=== PATIENT | female | born 1950 | race Caucasian/White ===

== ENCOUNTER → 2016-12-25 | Outpatient (CLI) | payer OTHER | END | disposition home or self-care (01) | LOC: LABWHC1 12:07 | PROVIDERS: ATTEND Internal Medicine Endocrinology, Diabetes & Metabolism | DX: E04.2 Nontoxic multinodular goiter (principal) | CPT/HCPCS: 36415; 84439; 84443; 84480 ==

== ENCOUNTER → 2017-02-22 | Outpatient (CLI) | payer OTHER ==
--- NOTE | 2017-02-23 09:49 | BD ---
EXAMINATION TYPE: MG DEXA axial skeleton. DATE OF EXAM: 02/22/2017 1:43 PM COMPARISON: NONE CLINICAL HISTORY: breast CA, post menopausal Height: 5'2 Weight: 133 FRAX RISK QUESTIONS: Alcohol (3 or more units per day): no Family History (Parent hip fracture): no Glucocorticoids (More than 3mos): no (Ex: prednisone, prednisolone, methylprednisolone, dexamethasone, and hydrocortisone). History of Fracture in Adulthood: no Secondary Osteoporosis: 1. Type 1 Diabetes: no 2. Hyperthyroidism: yes 3. Menopause before 45: no 4. Malnutrition: no 5. Chronic liver disease: no Rheumatoid Arthritis: no Current Tobacco Use: no RISK FACTORS HISTORY OF: Surgery to Spine: lower back When: 1999 Postmenopausal woman: Hyperthyroidism: <1 year MEDICATIONS: Thyroid Medications: Which medication: unknown How Lon months Additional Medications: tamoxifen, Additional History: breast cancer 2 months ago EXAM MEASUREMENTS: Bone mineral densitometry was performed using the [employer] System. Bone mineral density about the R hip (g/cm2): 0.841 Bone mineral density about the L hip (g/cm2): 0.824 T Score values are as follows: -----R Neck: -1.4 -----L Neck: -1.5 -----R Intertrochanter: -1.7 -----L Intertrochanter: -1.7 IMPRESSION: Osteopenia (T Score between -2.5 and -1 as noted by T score values. There is slightly increased risk of fracture and the patient may be considered for treatment. Re-Screen 1-2 years. NOTE: T-SCORE=SD OF THE YOUNG ADULT MEAN.
== END | disposition home or self-care (01) ==
LOC: RADBDWWP 13:21
PROVIDERS: ATTEND Internal Medicine Hematology & Oncology
DX: M85.88 Other specified disorders of bone density and structure, other site (principal); C50.412 Malignant neoplasm of upper-outer quadrant of left female breast; Z79.890 Hormone replacement therapy
CPT/HCPCS: 77080

== ENCOUNTER → 2017-05-28 | Outpatient (CLI) | payer MEDICARE | END | disposition home or self-care (01) | LOC: LABWHC1 13:44 | PROVIDERS: ATTEND Internal Medicine Endocrinology, Diabetes & Metabolism | DX: E04.2 Nontoxic multinodular goiter (principal) | CPT/HCPCS: 36415; 84439; 84443 ==

== ENCOUNTER → 2017-07-05 | Outpatient (CLI) | payer MEDICARE | END | disposition home or self-care (01) | LOC: LABWHC1 13:57 | PROVIDERS: ATTEND Internal Medicine Endocrinology, Diabetes & Metabolism | DX: E05.90 Thyrotoxicosis, unspecified without thyrotoxic crisis or storm (principal) | CPT/HCPCS: 36415; 84439; 84443; 84480 ==

== ENCOUNTER → 2017-12-28 | Outpatient (CLI) | payer MEDICARE, OTHER ==
[2017-12-28 17:42] LABS: T4, Free (Free Thyroxine) 0.95 ng/dL (0.78-2.19)
--- NOTE | 2017-12-29 08:18 | US ---
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 Goiter, pt states she is on thyroid meds x 1 1/2 yrs GLAND SIZE: Right Lobe: 4.1 x 1.6 x 1.8 cm Overall Parenchyma: heterogenous Left Lobe: 4.2 x 1.5 x 1.7 cm Overall Parenchyma: heterogeneous Isthmus Thickness: 0.2 cm NODULES RIGHT: # of nodules measured on right: 2 1. 1.3 X 1.0 x 0.8 cm isoechoic solid nodule at the upper pole with well-defined margins; This nod ule is wider than tall and shows intranodular vascularity. Prior size: FNA transverse measurement= 0.9 cm 2. 1.1 X 0.7 x 0.9 cm echogenic solid nodule at the lower pole with well-defined margins; Calcified wall. This nodule is wider than tall and shows intranodular vascularity. Prior size: No prior measurement LEFT: # of nodules measured on left: 1 1. 2.4 X 1.3 x 1.3 cm hypoechoic solid nodule at the lower pole with well-defined margins; This nod ule is wider than tall and shows intranodular vascularity. Prior size: FNA transverse measurement= 1.5 cm Bilateral neck scanned, no evidence of lymphadenopathy. Nodules bilaterally that have been previously biopsied. IMPRESSION: Minimal interval growth of the previously biopsied bilateral thyroid nodules on background of diffuse ly heterogenous thyroid parenchymal echotexture. Newly identified right 1.1 cm peripherally calcified thyroid nodule appears benign.
== END | disposition home or self-care (01) ==
LOC: RADUSWWP 15:59
PROVIDERS: ATTEND Internal Medicine Endocrinology, Diabetes & Metabolism
DX: E04.2 Nontoxic multinodular goiter (principal)
CPT/HCPCS: 76536; 84439; 84443

== ENCOUNTER → 2018-03-17 | Outpatient (CLI) | payer MEDICARE, OTHER ==
--- NOTE | 2018-03-17 14:37 | BD ---
EXAMINATION TYPE: MG DEXA axial skeleton. DATE OF EXAM: 03/17/2018 COMPARISON: 2017 CLINICAL HISTORY: Postmenopausal female. Osteoporosis screening. Height: 5 FT 1 1/4 IN Weight: 135 FRAX RISK QUESTIONS: Alcohol (3 or more units per day): NO Family History (Parent hip fracture): NO Glucocorticoids (More than 3mos): NO (Ex: prednisone, prednisolone, methylprednisolone, dexamethasone, and hydrocortisone). History of Fracture in Adulthood: NO Secondary Osteoporosis: 1. Type 1 Diabetes: NO 2. Hyperthyroidism: YES 3. Menopause before 45: NO 4. Malnutrition: NO 5. Chronic liver disease: NO Rheumatoid Arthritis: NO Current Tobacco Use: NO RISK FACTORS HISTORY OF: Surgery to Spine/Hip(right/left)/Wrist (right/left): PT STATE SHE HAD A HERNIATED DISC AND HAD IT REP AIRED NOT SURE WHICH DISC When: EARLY 30'S Active: YES Postmenopausal woman: AGE 54 Lost more than 2 inches in height since high school: YES MEDICATIONS: Additional Medications: LETROZOLE,METHIMAZOLE Additional History: BREAST CA 2016 RADIATION EXAM MEASUREMENTS: Bone mineral densitometry was performed using the [employer] System. Bone mineral density as measured about the Lumbar spine is: ----- L1-L4(G/cm2): 1.229 T Score Values are as follows: ----- L2: 0.2 ----- L3: 0.9 ----- L4: 0.4 ----- L1-L4: 0.4 SPINE NOT DONE LAST YEAR Bone mineral density about the R hip (g/cm2): 0.854 Bone mineral density about the L hip (g/cm2): 0.827 T Score values are as follows: -----R Neck: -1.3 -----L Neck: -1.5 -----R Total: -1.4 -----L Total: -1.8 Bone mineral density has: INCREASED 0.8 % since study of: 2017 IMPRESSION: Osteopenia (T Score between -2.5 and -1). There is slightly increased risk of fracture and the patient may be considered for treatment. Re-Screen 2-5 years. NOTE: T-SCORE=SD OF THE YOUNG ADULT MEAN.
== END | disposition home or self-care (01) ==
LOC: RADBDWWP 13:03
PROVIDERS: ATTEND Internal Medicine Hematology & Oncology
DX: C50.412 Malignant neoplasm of upper-outer quadrant of left female breast (principal); M85.80 Other specified disorders of bone density and structure, unspecified site
CPT/HCPCS: 77080

== ENCOUNTER → 2018-05-26 | Outpatient (CLI) | payer MEDICARE, OTHER ==
[2018-05-26 14:26] VITALS: BP 121/59; PULSE 73; TEMP 98; BMI 23.9
--- NOTE | 2018-05-26 14:59 | P.GSHP ---
History of Present Illness H&P Date: 05/26/18 Patient is a 68 year old white female status post left breast lumpectomy and SNB on 10-13-16. She is doing well at this time but complains of the left breast turning purple. There was mild tenderness. No fever. No new masses in her breast. The color has improved. She had radiation therapy. No other complaints. Patient has had no chemotherapy, positive hormonal therapy. The patient had a bilateral mammogram done 10:30 D1 17. On the mammogram it was felt to be benign changes BIRADS 2 with typically benign calcifications in the right breast and postsurgical change in the left upper outer quadrant. Follow-up in 1 year recommended. family history: 1. father: cancer unknown type 2. two brothers: prostate menarche: 15 : 5, children 5, breast fed 4 menopause: 50's BCP: 2 years, than had an IUD hormones: none past surgical history: 1. left breast surgery 2. lump removed from her leg 3. knee 4. left neck nodule past medical history: 1. breast cancer by history social history: smoke: none alcohol: seldom drugs: none ROS: HEENT: none lung: none heart: none GI: none : dysplasia cervical in the past, not have a hysterectomy - Constitutional Constitutional: Denies chills, Denies fever - EENT Eyes: bilateral as per HPI Ears: deny: decreased hearing, tinnitus Ears, nose, mouth and throat: Denies headache, Denies sore throat - Breasts Breasts: bilateral: as per HPI - Cardiovascular Cardiovascular: Denies chest pain, Denies shortness of breath - Respiratory Respiratory: Denies cough, Denies 7 - Gastrointestinal Gastrointestinal: Denies abdominal pain, Denies diarrhea, Denies nausea, Denies vomiting - Genitourinary (Female) Genitourinary: Reports as per HPI, Denies dysuria, Denies hematuria - Menstruation Menstruation: Reports postmenopausal - Musculoskeletal Comment: arthritis, bilateral knees Musculoskeletal: Reports myalgias - Integumentary Comment: left breast skin as noted in HPI Integumentary: Reports as per HPI - Neurological Neurological: Denies numbness, Denies weakness - Psychiatric Psychiatric: Denies anxiety, Denies depression - Endocrine Endocrine: Denies fatigue, Denies weight change - Hematologic/Lymphatic Comment: aspirin - Allergic/Immunologic Comment: none Past Medical History Past Medical History: Cancer, Hyperlipidemia, Thyroid Disorder Additional Past Medical History / Comment(s): LEFT BREAST CANCER (AUG 2016)., HX OF CERVICAL CANCER, FOLLOWING WITH DR IVAN FOR THYROID. History of Any Multi-Drug Resistant Organisms: None Reported Past Surgical History: Breast Surgery Additional Past Surgical History / Comment(s): NODULE REMOVED FROM POSTERIOR UPPER LEG (), SURGERY FOR CERVICAL CANCER, LUMP ON NECK, KNEE ARTHROSCOPY. Past Anesthesia/Blood Transfusion Reactions: No Reported Reaction Past Psychological History: No Psychological Hx Reported Smoking Status: Former smoker Past Alcohol Use History: Rare Additional Past Alcohol Use History / Comment(s): STATES SHE WAS AN OCCASIONAL SMOKER FOR APPROX 14 YEARS. QUIT OVER 1 YEAR AGO. Past Drug Use History: None Reported - Past Family History Father Family Medical History: Cancer Additional Family Medical History / Comment(s): SKIN CANCER Mother Family Medical History: Thyroid Disorder Sister(s) Family Medical History: Thyroid Disorder Additional Family Medical History / Comment(s): THREE SISTERS WITH THYROID DISORDERS Medications and Allergies Home Medications Medication Instructions Recorded Confirmed Type Aspirin 325 mg PO DAILY PRN 10/09/16 05/26/18 History Calcium With Vitamin D 1 tab PO AC-LUNCH 10/09/16 05/26/18 History Multivitamins, Thera [Multivitamin] 1 tab PO AC-LUNCH 10/09/16 05/26/18 History Cholecalciferol [Vitamin D3] 1,000 unit PO DAILY 05/26/18 05/26/18 History Letrozole [Femara] 2.5 mg PO DAILY 05/26/18 05/26/18 History Methimazole [Tapazole] 5 mg PO DAILY 05/26/18 05/26/18 History Allergies Allergy/AdvReac Type Severity Reaction Status Date / Time No Known Allergies Allergy Verified 10/09/16 15:03 Surgical - Exam Vital Signs Temp Pulse BP Pulse Ox 98.0 F 73 121/59 99 05/26/18 14:24 05/26/18 14:24 05/26/18 14:24 05/26/18 14:24 - General well developed, well nourished, no distress - Eyes normal ocular movement, no icteric - ENT no hearing loss, no congestion - Neck no masses, trachea midline - Respiratory normal respiratory effort, clear to auscultation - Cardiovascular Rhythm: regular Heart Sounds: normal: S1, S2 - Abdomen Abdomen: soft, non tender, no guarding, no rigid, no rebound - Integumentary Breast examination: Right breast: Multiple positional exam no dominant masses or nodules of concern Right axilla: No adenopathy of concern Left breast: Changes from his prior lumpectomy and radiation therapy, no erythema of concern, no masses of concern, left axilla: No adenopathy of concern No evidence of any lymphedema of the left upper extremity no evidence of any infection in the left hand or upper extremity - Neurologic no disoriented, no combative - Musculoskeletal normal gait, normal posture - Psychiatric oriented to time, oriented to person, oriented to place, speech is normal, memory intact Assessment and Plan Assessment: Impression/plan: 1. Left breast cancer no evidence of recurrence 2. Questionable erythema of the left breast since resolved 3. Possible arthritis of the knees Plan: 1. Continued present surveillance repeat bilateral mammogram and physician exam in August 2018 2. Patient will call if notes any further erythema of the left breast or has any questions CC: Dr. Arellano
== END ==
LOC: WWCWWP 14:09
PROVIDERS: ATTEND Surgery
DX: Z85.3 Personal history of malignant neoplasm of breast (principal); E78.5 Hyperlipidemia, unspecified; Z53.9 Procedure and treatment not carried out, unspecified reason; Z85.41 Personal history of malignant neoplasm of cervix uteri; Z87.891 Personal history of nicotine dependence

== ENCOUNTER → 2018-09-22 | Outpatient (CLI) | payer MEDICARE, OTHER ==
--- NOTE | 2018-09-22 14:11 | MM ---
Reason for exam: additional evaluation requested from prior study. Last mammogram was performed 1 year ago. History: Patient is postmenopausal, has history of breast cancer at age 66, and history of endometrial cancer. Family history of breast cancer. Malignant MG pre op needle loc LT of the left breast, October 13, 2016. Malignant US biopsy breast VAD LT of the left breast, September 16, 2016. Lumpectomy left breast 2015. Radiation Left breast 2015. Taking antineoplastic for 1 year. Taking other hormone for 1 year. Physical Findings: Nurse did not find any significant physical abnormalities on exam. MG 3D Diag Mammo W/Cad NAMRATA Bilateral CC and MLO view(s) were taken. Prior study comparison: September 22, 2017, bilateral MG 3d diag mammo w/cad NAMRATA. September 16, 2016, left breast MG diagnostic mammo LT wo CAD. These results were verbally communicated with the patient and result sheet given to the patient on 09/22/18. No significant changes when compared with prior studies. ASSESSMENT: Benign, BI-RAD 2 RECOMMENDATION: Routine screening mammogram of both breasts in 1 year.
== END | disposition home or self-care (01) ==
LOC: RADMAMWWP 13:00
PROVIDERS: ATTEND Radiology Radiation Oncology
DX: Z08 Encounter for follow-up examination after completed treatment for malignant neoplasm (principal); Z85.3 Personal history of malignant neoplasm of breast
CPT/HCPCS: 77066; G0279; 77062

== ENCOUNTER → 2018-09-29 | Outpatient (CLI) | payer MEDICARE, OTHER ==
[2018-09-30 02:22] LABS: T4, Free (Free Thyroxine) 1.3 ng/dL (0.80-1.80)
== END | disposition home or self-care (01) ==
LOC: LABWHC1 15:30
PROVIDERS: ATTEND Internal Medicine Endocrinology, Diabetes & Metabolism
DX: E05.90 Thyrotoxicosis, unspecified without thyrotoxic crisis or storm (principal)
CPT/HCPCS: 36415; 84439; 84443; 84480

== ENCOUNTER → 2018-09-30 | Outpatient (CLI) | payer MEDICARE, OTHER ==
[2018-09-30 09:44] VITALS: BP 138/80; PULSE 80; RESP 18; TEMP 98; BMI 24.4
--- NOTE | 2018-09-30 10:06 | P.GSHP ---
History of Present Illness H&P Date: 09/30/18 Chief Complaint: left breast cancer 2016 The patient is a 68-year-old white female status post left breast lumpectomy and radiation therapy in 2016. She did not have chemotherapy. She is taking letrozole and is being followed by medical and radiation oncology. She had a recent diagnostic mammogram this did not show any lesions of concern and repeat bilateral mammogram in 1 year was recommended. Approximately 6 months ago the patient complained of some purple discoloration in her left breast, this has resolved. At this time the patient has no complaints of any masses or nodules in her breasts. She has no complaints of any color changes in her breasts. She has had no recent trauma or infection in her breast. Family history: patient: cervical dysplasia and left breast cancer brother: prostate cancer Hormonal History: menarche:14 : 5 children: 5 age at first : 22 breast fed: yes menopause:53 BCP: 5 years hormone: none Past surgical history: 1. Left breast lumpectomy sentinel node biopsy 2. Left knee 3. Nodule right side of neck 4. Nodule on buttock Past Medical History: 1. hyperthyroid 2. high cholesterol Social History: smoke: none alcohol: occasional drugs: none - Constitutional Constitutional: Denies chills, Denies fever - EENT Eyes: denies blurred vision, denies pain Ears: deny: decreased hearing, tinnitus Ears, nose, mouth and throat: Denies headache, Denies sore throat - Breasts Breasts: bilateral: as per HPI - Cardiovascular Cardiovascular: Reports as per HPI - Respiratory Respiratory: Denies cough, Denies 7 - Gastrointestinal Gastrointestinal: Denies abdominal pain, Denies diarrhea, Denies nausea, Denies vomiting - Genitourinary (Female) Genitourinary: Denies dysuria, Denies hematuria - Menstruation Menstruation: Reports postmenopausal - Musculoskeletal Musculoskeletal: Reports as per HPI - Integumentary Integumentary: Denies pruritus, Denies rash - Neurological Neurological: Denies numbness, Denies weakness - Psychiatric Psychiatric: Denies anxiety, Denies depression - Endocrine Comment: hyperthyroid - Hematologic/Lymphatic Comment: none - Allergic/Immunologic Comment: none Past Medical History Past Medical History: Cancer, Hyperlipidemia, Thyroid Disorder Additional Past Medical History / Comment(s): LEFT BREAST CANCER (AUG 2016)., HX OF CERVICAL CANCER, FOLLOWING WITH DR IVAN FOR THYROID. History of Any Multi-Drug Resistant Organisms: None Reported Past Surgical History: Breast Surgery Additional Past Surgical History / Comment(s): NODULE REMOVED FROM POSTERIOR UPPER LEG (), SURGERY FOR CERVICAL CANCER, LUMP ON NECK, KNEE ARTHROSCOPY. Past Anesthesia/Blood Transfusion Reactions: No Reported Reaction Past Psychological History: No Psychological Hx Reported Smoking Status: Former smoker Past Alcohol Use History: Rare Additional Past Alcohol Use History / Comment(s): STATES SHE WAS AN OCCASIONAL SMOKER FOR APPROX 14 YEARS. QUIT OVER 1 YEAR AGO. Past Drug Use History: None Reported - Past Family History Father Family Medical History: Cancer Additional Family Medical History / Comment(s): SKIN CANCER Mother Family Medical History: Thyroid Disorder Sister(s) Family Medical History: Thyroid Disorder Additional Family Medical History / Comment(s): THREE SISTERS WITH THYROID DISORDERS Medications and Allergies Home Medications Medication Instructions Recorded Confirmed Type Aspirin 325 mg PO DAILY PRN 10/09/16 09/30/18 History Calcium With Vitamin D 1 tab PO AC-LUNCH 10/09/16 09/30/18 History Multivitamins, Thera [Multivitamin] 1 tab PO AC-LUNCH 10/09/16 09/30/18 History Cholecalciferol [Vitamin D3] 1,000 unit PO DAILY 05/26/18 09/30/18 History Letrozole [Femara] 2.5 mg PO DAILY 05/26/18 09/30/18 History Methimazole [Tapazole] 5 mg PO DAILY 05/26/18 09/30/18 History Allergies Allergy/AdvReac Type Severity Reaction Status Date / Time No Known Allergies Allergy Verified 10/09/16 15:03 Surgical - Exam Vital Signs Temp Pulse Resp BP 98 F 80 18 138/80 09/30/18 09:39 09/30/18 09:39 09/30/18 09:39 09/30/18 09:39 BMI 24.4 - General well developed, well nourished, no distress - Eyes normal ocular movement, no icteric - ENT no hearing loss, no congestion - Neck no masses, trachea midline - Respiratory normal respiratory effort, clear to auscultation - Cardiovascular Rhythm: regular Heart Sounds: normal: S1, S2 - Abdomen Abdomen: soft, non tender, no guarding, no rigid, no rebound - Integumentary normal turger - Musculoskeletal normal gait, normal posture - Psychiatric oriented to time, oriented to person, oriented to place, speech is normal, memory intact breast exam: Right breast exam: Multiple positional exam no dominant masses or nodules of concern Right axilla: No adenopathy of concern Left breast: Skin changes related to prior lumpectomy well-healed scar, no dominant masses or nodules of concern on multiple positional exam Left axilla: No adenopathy of concern Results Mammogram results reviewed Assessment and Plan Assessment: Impression: 1. Status post left breast lumpectomy 2015 2. No evidence of recurrent cancer 3. changes in memory 4. hyperthyroid Plan: 1. follow up in 6 months 2. medical management of medical conditions CC: Dr. Cuevas, Dr. Sasha Rosenthal
== END | disposition home or self-care (01) ==
LOC: WWCWWP 09:26
PROVIDERS: ATTEND Surgery
DX: Z53.9 Procedure and treatment not carried out, unspecified reason (principal)

== ENCOUNTER → 2019-01-10 | Outpatient (CLI) | payer MEDICARE, OTHER ==
--- NOTE | 2019-01-10 13:43 | US ---
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 F/U GLAND SIZE: Right Lobe: 4.2 x 1.8 x 1.6 cm Overall Parenchyma: heterogenous Left Lobe: 4.1 x 1.8 x 1.6 cm Overall Parenchyma: heterogeneous Isthmus Thickness: 0.3 cm NODULES RIGHT: # of nodules measured on right: 3 1. 1.4 X 1.2 x 0.9 cm isoechoic solid nodule at the upper pole with well-defined margins; . This n odule is wider than tall and shows intranodular vascularity. Prior size: 1.3 x 1.0 x 0.8 cm 2. 1.0 X 0.7 x 0.9 cm isoechoic solid nodule at the lower pole with well-defined margins; Calcified rim. This nodule is wider than tall and shows intranodular vascularity. Prior size: 1.1 x 0.7 x 0.9 cm 3. 0.7 X 0.6 x 0.6 cm isoechoic mixed nodule at the lower pole with well-defined margins; This nod ule is wider than tall and shows intranodular vascularity. Prior size: Not visualized on prior LEFT: # of nodules measured on left: 1 1. 2.1 X 1.2 x 1.4 cm hypoechoic solid nodule at the lower pole with well-defined margins; This no dule is wider than tall and shows intranodular vascularity. Prior size: 2.4 x 1.3 x 1.3 cm Bilateral neck scanned, no evidence of lymphadenopathy. Stable nodules bilaterally with new sub-centi meter nodule right lower pole. IMPRESSION: Similar-appearing bilateral thyroid nodules in comparison to the prior exam of 12/28/2017. Solitary new right subcentimeter thyroid nodule is appreciated. Continued surveillance could be performed in this multinodular goiter.
== END | disposition home or self-care (01) ==
LOC: RADUSWWP 12:55
PROVIDERS: ATTEND Internal Medicine Endocrinology, Diabetes & Metabolism
DX: E04.2 Nontoxic multinodular goiter (principal)
CPT/HCPCS: 76536

== ENCOUNTER → 2019-01-11 | Outpatient (CLI) | payer MEDICARE, OTHER ==
[2019-01-11 16:34] LABS: T4, Free (Free Thyroxine) 1.1 ng/dL (0.80-1.80)
== END | disposition home or self-care (01) ==
LOC: LABWHC1 11:09
PROVIDERS: ATTEND Internal Medicine Endocrinology, Diabetes & Metabolism
DX: E04.2 Nontoxic multinodular goiter (principal)
CPT/HCPCS: 36415; 84439; 84443; 84480

== ENCOUNTER → 2019-04-06 | Outpatient (CLI) | payer MEDICARE, OTHER ==
[2019-04-06 10:10] VITALS: BP 145/82; PULSE 98; RESP 18; TEMP 98; BMI 24.4
--- NOTE | 2019-04-06 10:26 | P.PN ---
Subjective Progress Note Date: 04/06/19 Principal diagnosis: Breast Cancer Stage 1A, T1bN0(sn)M0ER+Pr+Her2/lynda- Judie is a 68-year-old white female status post left breast lumpectomy and radiation therapy in 2016. She did not have chemotherapy. She is presently taking letrazole and being followed by medical and radiation oncology. She had a bilateral mammogram on . This showed no changes of concern and repeat bilateral mammogram in 1 year is recommended. The patient has no complaints of breast pain. She has no complaints of lumps or masses in her breast. She was recently seen medical and radiation oncology, and they have not recommended any changes in her therapy. She has not had any complaints of hot flashes. She is not having any complaints of muscle aches or pains. Family History: 1. 2 brother: prostate cancer 2. patient: Cervical dysplasia and left breast cancer Hormonal History: Menarche: 14 : , first. At 22, press-fit: Yes Menopause: 53 Postoperative control pills: 5 years Hormones: Negative Past surgical history: 1. Left breast lumpectomy sentinel node biopsy 2. Left knee surgery 3. Nodule right side of neck 4. Nodular buttock Past medical history: 1. Hypothyroid 2. High cholesterol Social history: Smoke: Negative Alcohol: Occasional Drugs: Negative Review of systems: HEENT: Negative Lungs: Negative Heart negative GI: Negative : Negative Musculoskeletal: Left knee pain Neurologic: Negative Psychiatric: Negative Integument: Negative ALLERGIES: Negative Objective - Vital Signs Vital signs: Vital Signs Temp 98 F 04/06/19 10:06 Pulse 98 04/06/19 10:06 Resp 18 04/06/19 10:06 BP 145/82 04/06/19 10:06 Pulse Ox 97 04/06/19 10:06 Intake & Output 04/05/19 04/06/19 04/06/19 18:59 06:59 18:59 Weight 62.596 kg - Exam BMI 24.4 - Constitutional General appearance: Present: average body habitus, cooperative - EENT Eyes: Present: EOMI, dentition normal ENT: Present: hearing grossly normal - Neck Neck: Present: normal ROM - Respiratory Respiratory: bilateral: CTA - Cardiovascular Rhythm: regular Heart sounds: normal: S1, S2 - Gastrointestinal Gastrointestinal Comment(s): no guarding or rebound no organomegaly General gastrointestinal: Present: soft - Integumentary Integumentary: Present: normal turgor - Musculoskeletal Musculoskeletal: Present: gait normal - Psychiatric Psychiatric: Present: A&O x's 3, appropriate affect, intact judgment & insight - Additional findings Additional findings: breast exam: right: multiple positional exam no dominant masses Right axilla: No adenopathy of concern Left breast: Well-healed scar from prior lumpectomy, multiple positional exam no dominant masses or nodules of concern, fibrocystic breast changes Left axilla: No adenopathy of concern or nodules of concern Assessment and Plan Assessment: Impression: 1. Patient status post left breast lumpectomy/radiation therapy/patient presently on left resolve this is a stage IA lesion 2. No evidence of recurrent cancer 3. Family history of cancer 4. left knee arthritis Plan: 1. Repeat bilateral mammogram in September 2. Continue follow-up with medical oncology 2. Continue follow-up with radiation oncology 4. Follow-up here in 6 months CC:Dr. Cuevas
== END | disposition home or self-care (01) ==
LOC: WWCWWP 09:40
PROVIDERS: ATTEND Surgery
DX: Z53.9 Procedure and treatment not carried out, unspecified reason (principal)

== ENCOUNTER → 2019-09-25 | Outpatient (CLI) | payer MEDICARE, OTHER ==
--- NOTE | 2019-09-25 11:18 | MM ---
Reason for exam: additional evaluation requested from prior study. Last mammogram was performed 1 year ago. History: Patient is postmenopausal, has history of breast cancer at age 66, and has history of endometrial cancer at age 32. Family history of breast cancer. Radiation therapy, 2016. Malignant MG pre op needle loc LT of the left breast, October 13, 2016. Malignant US biopsy breast VAD LT of the left breast, September 16, 2016. Lumpectomy of the left breast, 2015. Taking antineoplastic for 1 year. Taking other hormone for 2 years beginning at age 67. Physical Findings: Nurse did not find any significant physical abnormalities on exam. MG 3D Diag Mammo W/Cad NAMRATA Bilateral CC and MLO view(s) were taken. Prior study comparison: September 22, 2018, bilateral MG 3d diag mammo w/cad NAMRATA. September 22, 2017, bilateral MG 3d diag mammo w/cad NAMARTA. The breast tissue is heterogeneously dense. This may lower the sensitivity of mammography. No suspicious abnormality. Left post therapy change. These results were verbally communicated with the patient and result sheet given to the patient on 09/25/19. ASSESSMENT: Benign, BI-RAD 2 RECOMMENDATION: Follow-up diagnostic mammogram of both breasts in 1 year.
== END | disposition home or self-care (01) ==
LOC: RADMAMWWP 10:17
PROVIDERS: ATTEND Surgery
DX: N63.10 Unspecified lump in the right breast, unspecified quadrant (principal); N63.20 Unspecified lump in the left breast, unspecified quadrant; R92.8 Other abnormal and inconclusive findings on diagnostic imaging of breast; Z98.890 Other specified postprocedural states
CPT/HCPCS: 77066; G0279; 77062

== ENCOUNTER → 2019-10-05 | Outpatient (CLI) | payer MEDICARE, OTHER ==
[2019-10-05 11:06] VITALS: BP 146/80; PULSE 66; RESP 18; TEMP 97.7; BMI 23.9
--- NOTE | 2019-10-05 11:44 | P.PN ---
Subjective Progress Note Date: 10/05/19 Principal diagnosis: Surveillance stage IA left breast cancer 2016 [id number] Judie is a 69-year-old white female who is status post lipectomy and radiation therapy for a stage I a left breast cancer in 2017. She does not have any chemotherapy but continues on Letrazole. She is not complaining of any problems related to this. She is not complaining of any lumps masses no discharge or skin changes related to her breasts. She had a bilateral mammogram performed on . This really revealed no lesions of concern in either breast. It was benign BIRADS 2 follow-up diagnostic mammogram of both breasts in 1 year was recommended. Family History: 2 brother: prostate Hormonal History: menarche: 14 age at first birthL 22, breast fed: yes BCP: 5 years hormones: none Past Surgical History: 1. Removed from neck benign 2. Lump removed from leg benign 3. Left breast lumpectomy and sentinel node biopsy 4. cervical dysplasia scraped Medical history: 1. hyper-thyroid 2. high cholesterol Systems: Constitutional: Negative HEENT: Negative Breasts: As per HPI Cardiovascular: High cholesterol lungs: Negative GI: Negative : Negative postmenopausal Musculoskeletal: arthritis Integument: Negative Endocrine: Hypothyroid Neurologic: Negative Psychiatric: Negative Hematologic: Negative ALLERGIES: Negative Objective - Vital Signs Vital signs: Vital Signs Temp 97.7 F 10/05/19 11:03 Pulse 66 10/05/19 11:03 Resp 18 10/05/19 11:03 BP 146/80 10/05/19 11:03 Pulse Ox 100 10/05/19 11:03 Intake & Output 10/04/19 10/05/19 10/05/19 18:59 06:59 18:59 Weight 61.235 kg - Exam BMI 23.9 - Constitutional General appearance: Present: average body habitus - EENT Eyes: Present: EOMI ENT: Present: hearing grossly normal - Neck Neck: Present: normal ROM - Respiratory Respiratory: bilateral: CTA - Cardiovascular Rhythm: regular Heart sounds: normal: S1, S2 - Gastrointestinal Gastrointestinal Comment(s): no guarding or rebound normal bowel sounds General gastrointestinal: Present: soft - Integumentary Integumentary: Present: normal turgor - Musculoskeletal Musculoskeletal: Present: gait normal - Psychiatric Psychiatric: Present: A&O x's 3, appropriate affect - Additional findings Additional findings: breast exam: Right breast: Multiple positional exam no dominant masses or nodules of concern, fibrocystic changes Right axilla: No adenopathy of concern Left breast: Well-healed scar from prior lumpectomy, slightly smaller than the right breast, no dominant masses or nodules of concern, fibrocystic changes Left axilla: No adenopathy of concern Assessment and Plan Assessment: Impression: 1. Patient status post left breast lumpectomy, sentinel node biopsy, radiation therapy, presently Letrazole resolved for a stage IA tumor in 2017 2. Fibrocystic breast changes 3. Family history of cancer 4. High cholesterol 5. Hypothyroid 6. No evidence of recurrent cancer at this time 7. bilateral mammogram on 09-25-19 BIRAD 2 Plan: 1. Continue Letrazole 2. Continue surveillance will see patient again in 6 months 3. Repeat bilateral mammogram in 1 year 25 minutes spent with patient, > 50% discussion
== END ==
LOC: WWCWWP 10:55
PROVIDERS: ATTEND Surgery
DX: Z53.9 Procedure and treatment not carried out, unspecified reason (principal)

== ENCOUNTER → 2020-01-06 | Outpatient (CLI) | payer MEDICARE, OTHER ==
[2020-01-06 17:16] LABS: T4, Free (Free Thyroxine) 1.4 ng/dL (0.80-1.80)
== END | disposition home or self-care (01) ==
LOC: LABWHC1 11:28
PROVIDERS: ATTEND Internal Medicine Endocrinology, Diabetes & Metabolism
DX: E05.00 Thyrotoxicosis with diffuse goiter without thyrotoxic crisis or storm (principal)
CPT/HCPCS: 36415; 84439; 84443; 84480

== ENCOUNTER → 2020-01-10 | Outpatient (CLI) | payer MEDICARE, OTHER ==
--- NOTE | 2020-01-11 11:44 | US ---
EXAMINATION TYPE: US thyroid st tissue head/neck DATE OF EXAM: 01/10/2020 COMPARISON: US dated 01/10/2019 CLINICAL HISTORY: E04.2 NONTOXIC MOLTINODULAR GOITER. Nontoxic multinodular goiter. Patient is taking thyroid medication. Hx bilateral thyroid biopsy. GLAND SIZE: Right Lobe: 4.7 x 1.6 x 1.4 cm Overall Parenchyma: heterogenous Left Lobe: 4.8 x 1.7 x 1.4 cm Overall Parenchyma: heterogeneous Isthmus Thickness: 0.26 cm NODULES RIGHT: # of nodules measured on right: 4 1. 1.3 X 1.0 x 1.2 cm isoechoic solid nodule at the upper pole with well-defined margins. This nod ule is taller than wide and shows intranodular vascularity. Prior size: 1.4 x 1.2 x 0.9 cm 2. 0.7 X 0.9 x 0.6 cm mixed nodule at the mid pole with well-defined margins. Calcified rim. This no dule is wider than tall and shows intranodular vascularity. Prior size: 1.0 x 0.7 x 0.9 cm 3. 0.7 X 0.7 x 0.6 cm mixed nodule at the lower pole with well-defined margins. This nodule is wide r than tall and shows intranodular vascularity. Prior size: 0.7 x 0.6 x 0.6 cm 4. 0.7 X 0.6 x 0.6 cm hypoechoic solid nodule at the lower pole with well-defined margins. This nod ule is as wide as it is tall and shows intranodular vascularity. Prior size: No prior LEFT: # of nodules measured on left: 2 1. 1.9 X 1.3 x 1.2 cm hypoechoic solid nodule at the lower pole with well-defined margins. This no dule is wider than tall and shows intranodular vascularity. Prior size: 2.1 x 1.2 x 1.4 cm 2. 0.8 X 0.9 x 1.0 cm echogenic solid nodule at the upper pole with well-defined margins. This nod ule is taller than wide and shows intranodular vascularity. Prior size: No prior ISTHMUS: # of nodules measured in the isthmus: 0 Bilateral neck scanned, no evidence of lymphadenopathy. IMPRESSION: Similar findings to prior exam, findings consistent with multinodular goiter
== END | disposition home or self-care (01) ==
LOC: RADUSMAIN 17:40
PROVIDERS: ATTEND Internal Medicine Endocrinology, Diabetes & Metabolism
DX: E04.2 Nontoxic multinodular goiter (principal)
CPT/HCPCS: 76536

== ENCOUNTER → 2020-07-03 | Outpatient (CLI) | payer MEDICARE, OTHER ==
[2020-07-03 16:43] LABS: T4, Free (Free Thyroxine) 1.2 ng/dL (0.80-1.80)
== END | disposition home or self-care (01) ==
LOC: LABWHC1 10:41
PROVIDERS: ATTEND Internal Medicine Endocrinology, Diabetes & Metabolism
DX: E05.90 Thyrotoxicosis, unspecified without thyrotoxic crisis or storm (principal)
CPT/HCPCS: 36415; 84439; 84443; 84480

== ENCOUNTER → 2020-10-01 | Outpatient (CLI) | payer MEDICARE, OTHER ==
--- NOTE | 2020-10-01 09:01 | MM ---
Reason for exam: additional evaluation requested from prior study. Last mammogram was performed 1 year ago. History: Patient is postmenopausal, has history of breast cancer at age 66, and has history of endometrial cancer at age 32. Radiation therapy, 2017. Malignant MG pre op needle loc LT of the left breast, October 13, 2016. Malignant US biopsy breast VAD LT of the left breast, September 16, 2016. Lumpectomy of the left breast, 2016. Taking antineoplastic for 1 year. Taking other hormone for 2 years beginning at age 67. Physical Findings: Nurse did not find any significant physical abnormalities on exam. MG 3D Diag Mammo W/Cad NAMRATA Bilateral CC and MLO view(s) were taken. Prior study comparison: September 25, 2019, bilateral MG 3d diag mammo w/cad NAMRATA. September 22, 2018, bilateral MG 3d diag mammo w/cad NAMRATA. The breast tissue is heterogeneously dense. This may lower the sensitivity of mammography. No suspicious calcifications are seen. Stable post operative changes left breast. No significant new findings when compared with previous films. These results were verbally communicated with the patient and result sheet given to the patient on 10/01/20. ASSESSMENT: Benign, BI-RAD 2 RECOMMENDATION: Follow-up diagnostic mammogram of both breasts in 1 year.
== END | disposition home or self-care (01) ==
LOC: RADMAMWWP 07:59
PROVIDERS: ATTEND Surgery
DX: Z08 Encounter for follow-up examination after completed treatment for malignant neoplasm (principal); Z85.3 Personal history of malignant neoplasm of breast
CPT/HCPCS: 77066; G0279; 77062

== ENCOUNTER → 2020-10-01 | Outpatient (CLI) | payer MEDICARE, OTHER ==
--- NOTE | 2020-10-01 08:50 | BD ---
EXAMINATION TYPE: Axial Bone Density DATE OF EXAM: 10/01/2020 COMPARISON: NONE CLINICAL HISTORY: Height: 5 FT 2 IN Weight: 137 FRAX RISK QUESTIONS: Alcohol (3 or more units per day): NO Family History (Parent hip fracture): NO Glucocorticoids (More than 3mos): NO (Ex: prednisone, prednisolone, methylprednisolone, dexamethasone, and hydrocortisone). History of Fracture in Adulthood: NO Secondary Osteoporosis: 1. Type 1 Diabetes: NO 2. Hyperthyroidism: NO 3. Menopause before 45: NO 4. Malnutrition: NO 5. Chronic liver disease: NO Rheumatoid Arthritis: NO Current Tobacco Use: NO RISK FACTORS HISTORY OF: Surgery to Spine/Hip(right/left)/Wrist (right/left): DISC REMOVED A LONG TIME AGO Family History of Osteoporosis: NO Active: YES Diet low in dairy products/other sources of calcium: NO Postmenopausal woman: AGE 54 Take estrogen and/or progesterone medications: NONE Lost more than 2 inches in height since high school: YES MEDICATIONS: Thyroid Medications: YES Which medication: METHIMAZOLE How Lon YEARS Additional Medications: LETRAZOLE, METHIMAZOLE, Additional History: BREAST CANCER 2016 RADIATION EXAM MEASUREMENTS: Bone mineral densitometry was performed using the [employer] System. Bone mineral density as measured about the Lumbar spine is: ----- L1-L4(G/cm2): 1.226 T Score Values are as follows: ----- L2: -0.7 ----- L3: 1.2 ----- L4: 1.0 ----- L1-L4: 0.4 Bone mineral density has: INCREASED 0.2 % since study of: 2018 Bone mineral density about the R hip (g/cm2): 0.830 Bone mineral density about the L hip (g/cm2): 0.806 T Score values are as follows: -----R Neck: -1.5 -----L Neck: -1.7 -----R Total: -1.6 -----L Total: -1.9 Bone mineral density has: DECREASED -1.5 % since study of: 2018 IMPRESSION: Osteopenia NOTE: T-SCORE=SD OF THE YOUNG ADULT MEAN.
== END | disposition home or self-care (01) ==
LOC: RADBDWWP 08:02
PROVIDERS: ATTEND Internal Medicine Hematology & Oncology
DX: C50.412 Malignant neoplasm of upper-outer quadrant of left female breast (principal); M85.80 Other specified disorders of bone density and structure, unspecified site; Z79.890 Hormone replacement therapy
CPT/HCPCS: 77080

== ENCOUNTER → 2020-10-03 | Outpatient (CLI) | payer MEDICARE, OTHER ==
[2020-10-03 10:14] VITALS: BP 139/82; PULSE 82; RESP 18; TEMP 98
--- NOTE | 2020-10-03 10:56 | P.PN ---
Subjective Progress Note Date: 10/03/20 Principal diagnosis: surveillance Stage IA left breast cancer 2017 Surveillance stage IA left breast cancer 2017 [id number] Judie is a 69-year-old white female who is status post lumpectomy and radiation therapy for a stage IA left breast cancer in 2017. She did not have any chemotherapy but continues on Letrazole. She is not complaining of any problems related to this. She is not complaining of any lumps masses no discharge or skin changes related to her breasts. She had a bilateral mammogram performed on 10-01-20. This really revealed no lesions of concern in either breast. It was benign BIRADS 2 follow-up diagnostic mammogram of both breasts in 1 year was recommended. Family History: 2 brother: prostate Hormonal History: menarche: 14 age at first birthL 22, breast fed: yes BCP: 5 years hormones: none Past Surgical History: 1. Removed from neck benign 2. Lump removed from leg benign 3. Left breast lumpectomy and sentinel node biopsy 4. cervical dysplasia scraped Medical history: 1. hyper-thyroid 2. high cholesterol Medications: letrozole methmazole atorvastatin Social history: Nicotine: Negative Alcohol: rare Drugs: Negative Systems: Constitutional: Negative HEENT: Negative Breasts: As per HPI Cardiovascular: High cholesterol lungs: Negative GI: Negative : Negative postmenopausal Musculoskeletal: arthritis Integument: Negative Endocrine: Hyperthyroid Neurologic: Negative Psychiatric: Negative Hematologic: Negative ALLERGIES: Negative Objective - Vital Signs Vital signs: Vital Signs Temp 98.0 F 10/03/20 10:11 Pulse 82 10/03/20 10:11 Resp 18 10/03/20 10:11 BP 139/82 10/03/20 10:11 Pulse Ox 99 10/03/20 10:11 Intake & Output 10/02/20 10/03/20 10/03/20 18:59 06:59 18:59 Weight 61.235 kg - Exam BMI 23.9 - Constitutional General appearance: Present: average body habitus - EENT Eyes: Present: EOMI ENT: Present: hearing grossly normal - Neck Neck: Present: normal ROM - Respiratory Respiratory: bilateral: CTA - Cardiovascular Rhythm: regular Heart sounds: normal: S1, S2 - Gastrointestinal General gastrointestinal: Present: normal bowel sounds, soft - Integumentary Integumentary: Present: normal turgor - Musculoskeletal Musculoskeletal: Present: gait normal - Psychiatric Psychiatric: Present: A&O x's 3, appropriate affect - Additional findings Additional findings: breast exam: BRA 34C inspection: Well-healed scar left breast upper outer quadrant region, ptosis grade 2 bilateral Palpation: Right breast: Positional exam fibrocystic changes no dominant masses or nodules of concern Right axilla: No adenopathy of concern Left breast: Multiple positional exam well-healed scar from prior surgery no evidence of recurrent cancer no dominant masses or nodules of concern Left axilla: No adenopathy of concern Assessment and Plan Assessment: Impression: 1. hyper-thyroid 2. high cholesterol 3. stage IA left breast cancer no evidence of recurrence 4. on letrazole 5. Bilateral mammograms to [id number] BIRAD 2 Plan: 1. Continue letrozole 2. Follow-up here in 6 months for physician exam 3. Bilateral mammogram in 1 year CC: Dr. Castillo encounter 20 minutes, > 50% of time in planning and counselling
== END | disposition home or self-care (01) ==
LOC: WWCWWP 09:42
PROVIDERS: ATTEND Surgery
DX: Z53.9 Procedure and treatment not carried out, unspecified reason (principal)

== ENCOUNTER → 2021-03-27 | Outpatient (CLI) | payer MEDICARE, OTHER ==
[2021-03-27 10:44] VITALS: BP 146/78; PULSE 78; RESP 18; TEMP 98.2
--- NOTE | 2021-03-27 10:48 | P.PN ---
Subjective Progress Note Date: 03/27/21 Principal diagnosis: Surveillance stage I A left breast cancer surveillance Stage IA left breast cancer 2016 [id number] Judie is a 70-year-old white female who is status post lumpectomy and radiation therapy for a stage IA left breast cancer in 2017. She did not have any chemotherapy but continues on Letrazole. She is not complaining of any problems related to this. She is not complaining of any lumps masses no discharge or skin changes related to her breasts. She had a bilateral mammogram performed on 10-01-20. This really revealed no lesions of concern in either breast. It was benign BIRADS 2 follow-up diagnostic mammogram of both breasts in 1 year was recommended. Family History: 2 brother: prostate Hormonal History: menarche: 14 age at first birthL 22, breast fed: yes BCP: 5 years hormones: none Past Surgical History: 1. Removed from neck benign 2. Lump removed from leg benign 3. Left breast lumpectomy and sentinel node biopsy 4. cervical dysplasia scraped Medical history: 1. hyper-thyroid 2. high cholesterol Medications: letrozole methmazole atorvastatin Social history: Nicotine: Negative Alcohol: rare Drugs: Negative Systems: Constitutional: Negative HEENT: Negative Breasts: As per HPI Cardiovascular: High cholesterol lungs: Negative GI: Negative : Negative postmenopausal Musculoskeletal: arthritis Integument: Negative Endocrine: Hyperthyroid Neurologic: Negative Psychiatric: Negative Hematologic: Negative ALLERGIES: Negative Objective - Constitutional General appearance: Present: average body habitus - EENT Eyes: Present: EOMI ENT: Present: hearing grossly normal - Respiratory Respiratory: bilateral: CTA - Cardiovascular Rhythm: regular Heart sounds: normal: S1, S2 - Integumentary Integumentary: Present: normal turgor - Musculoskeletal Musculoskeletal: Present: gait normal - Psychiatric Psychiatric: Present: A&O x's 3, appropriate affect, intact judgment & insight - Additional findings Additional findings: Breast exam: BRA: 34 C inspection: grade 2 ptosis bilateral palpation: right breast: Multiple positional exam fibrocystic changes, no dominant masses or nodules of concern Right axilla: No adenopathy of concern, shoddy adenopathy Left breast: Well-healed scar from prior surgery, asymmetry related to prior lumpectomy, multiple positional exam no dominant masses or nodules of concern Left axilla: Shoddy adenopathy non-concerning Patient had COVID vaccination in her left arm last dose 02-17-21 Assessment and Plan Assessment: Impression: 1. Hypothyroid 2. High cholesterol 3. Stage IA left breast cancer no evidence of recurrence on left resolved 4. Bilateral mammogram 2020 Plan: 1. Continue at results 2. Follow-up in 6 months for physician exam 3. Bilateral mammogram September 2021 Cc: Dr. Tian
== END ==
LOC: WWCWWP 10:34
PROVIDERS: ATTEND Surgery
DX: C50.912 Malignant neoplasm of unspecified site of left female breast (principal); E03.9 Hypothyroidism, unspecified; E78.00 Pure hypercholesterolemia, unspecified; Z92.3 Personal history of irradiation; Z79.899 Other long term (current) drug therapy

== ENCOUNTER → 2021-08-28 | Outpatient (CLI) | payer MEDICARE, OTHER ==
--- NOTE | 2021-08-29 07:07 | US ---
EXAMINATION TYPE: US thyroid st tissue head/neck DATE OF EXAM: 08/28/2021 COMPARISON: US 01/10/2020 CLINICAL HISTORY: E04.2 MULTINODULAR GOITER. D GLAND SIZE: Right Lobe: 4.5 x 1.7 x 1.3 cm Overall Parenchyma: heterogenous Left Lobe: 4.1 x 1.8 x 1.5 cm Overall Parenchyma: heterogeneous Isthmus Thickness: 0.4 cm NODULES RIGHT: # of nodules measured on right: 3 1. 1.3 X 1.1 x 1.0 cm, upper , solid or almost completely solid, isoechoic nodule, which is wider t garcia tall, with smooth margins, without echogenic foci. Prior size: 1.3 x 1.2 x 1.0 cm 2. 1.6 X 1.5 x 1.3 cm, mid , solid or almost completely solid, isoechoic nodule, which is taller th an wide, with smooth margins, without echogenic foci. Prior size: Not previously measured 3. 0.8 X 0.9 x 0.8 cm, lower , solid or almost completely solid, isoechoic nodule, which is wider t garcia tall, with smooth margins, without echogenic foci. Prior size: 0.7 x 0.7 x 0.6 cm LEFT: # of nodules measured on left: 1 1. 1.9 X 1.4 x 1.4 cm, mid , solid or almost completely solid, hypoechoic nodule, which is wider th an tall, with smooth margins, without echogenic foci. Prior size: 1.9 x 1.2 x 1.3 cm ISTHMUS: # of nodules measured in the isthmus: 0 Bilateral neck scanned, no evidence of lymphadenopathy. Diffusely heterogeneous thyroid lobes bilater ally IMPRESSION: Multinodular thyroid as measured above. Nodule measuring 1.6 cm in the right thyroid. Previous nodule stable. Recommend FNA of the new 1.6 cm right thyroid nodule 2017 ACR TI-RADS LEVEL: TR-RADS 4 - Moderately Suspicious: Follow if > 1 cm, FNA if > 1.5 cm *Highest TI-RADS level nodule reported
== END | disposition home or self-care (01) ==
LOC: RADUSWWP 16:56
PROVIDERS: ATTEND Internal Medicine Endocrinology, Diabetes & Metabolism
DX: E04.2 Nontoxic multinodular goiter (principal)
CPT/HCPCS: 76536

== ENCOUNTER → 2021-10-03 | Outpatient (CLI) | payer MEDICARE, OTHER ==
--- NOTE | 2021-10-13 10:44 | MM ---
Reason for exam: additional evaluation requested from prior study. Last mammogram was performed 1 year ago. History: Patient is postmenopausal, has history of breast cancer at age 66, and has history of endometrial cancer at age 32. Radiation therapy, 2017. Malignant MG pre op needle loc LT of the left breast, October 13, 2016. Malignant US biopsy breast VAD LT of the left breast, September 16, 2016. Lumpectomy of the left breast, 2015. Taking antineoplastic for 1 year. Taking other hormone for 2 years beginning at age 67. Physical Findings: Nurse did not find any significant physical abnormalities on exam. MG 3D Diag Mammo W/Cad NAMRATA Bilateral CC and MLO view(s) were taken. Prior study comparison: October 01, 2020, bilateral MG 3d diag mammo w/cad NAMRATA. September 25, 2019, bilateral MG 3d diag mammo w/cad NAMRATA. There are scattered fibroglandular densities. Post operative left breast. These results were verbally communicated with the patient and result sheet given to the patient on 10/03/21. ASSESSMENT: Benign, BI-RAD 2 RECOMMENDATION: Follow-up diagnostic mammogram of both breasts in 1 year.
== END | disposition home or self-care (01) ==
LOC: RADMAMWWP 10:22
PROVIDERS: ATTEND Surgery
DX: Z08 Encounter for follow-up examination after completed treatment for malignant neoplasm (principal); Z85.3 Personal history of malignant neoplasm of breast
CPT/HCPCS: 77066; G0279; 77062

== ENCOUNTER → 2021-10-09 | Outpatient (CLI) | payer MEDICARE, OTHER ==
[2021-10-09 10:56] VITALS: BP 123/74; PULSE 76; RESP 18; TEMP 97.9
--- NOTE | 2021-10-09 11:13 | P.PN ---
Subjective Progress Note Date: 10/09/21 Principal diagnosis: left breast stage IA invasive ductal cancer/surveillance surveillance Stage IA left breast cancer 2017 [id number] Judie is a 71-year-old white female who is status post lumpectomy and radiation therapy for a stage IA left breast cancer in 2017. She did not have any chemotherapy but continues on Letrazole. She is not complaining of any problems related to this. She is not complaining of any lumps masses no discharge or skin changes related to her breasts. She had a bilateral mammogram performed on 10-01-20. This revealed no lesions of concern in either breast. It was benign BIRADS 2 follow- up diagnostic mammogram of both breasts in 1 year was recommended. She had a repeat bilateral mammogram on [id number] results are pending. Note from 06-25-21, Dr. Pollack radiation oncology reviewed Family History: 2 brother: prostate Hormonal History: menarche: 14 age at first birthL 22, breast fed: yes BCP: 5 years hormones: none Past Surgical History: 1. Removed from neck benign 2. Lump removed from leg benign 3. Left breast lumpectomy and sentinel node biopsy 4. cervical dysplasia scraped Medical history: 1. hyper-thyroid 2. high cholesterol Medications: letrozole methmazole atorvastatin Social history: Nicotine: Negative Alcohol: rare Drugs: Negative Systems: Constitutional: Negative HEENT: Negative Breasts: As per HPI Cardiovascular: High cholesterol lungs: Negative GI: Negative : Negative postmenopausal Musculoskeletal: arthritis Integument: Negative Endocrine: Hyperthyroid Neurologic: Negative Psychiatric: Negative Hematologic: Negative ALLERGIES: Negative Objective - Vital Signs Vital signs: Vital Signs Temp 97.9 F 10/09/21 10:53 Pulse 76 10/09/21 10:53 Resp 18 10/09/21 10:53 BP 123/74 10/09/21 10:53 Pulse Ox 99 10/09/21 10:53 Intake & Output 10/08/21 10/09/21 10/09/21 18:59 06:59 18:59 Weight 62.142 kg - Constitutional General appearance: Present: cooperative - EENT Eyes: Present: EOMI ENT: Present: hearing grossly normal - Neck Neck: Present: normal ROM - Respiratory Respiratory: bilateral: CTA - Cardiovascular Rhythm: regular Heart sounds: normal: S1, S2 - Gastrointestinal General gastrointestinal: Present: soft - Integumentary Integumentary: Present: normal turgor - Musculoskeletal Musculoskeletal: Present: gait normal - Additional findings Additional findings: Breast Exam: BRA: 34B inspection: Postop and radiation changes left breast Palpation: Right breast: Multiple position with exam fibrocystic changes no dominant masses or nodules of concern Right axilla: Shotty adenopathy non-worrisome Left breast: Postop from postradiation changes no dominant masses or nodules of concern were multiple position on exam Left axilla: No adenopathy of concern Assessment and Plan Assessment: Impression: 1. Surveillance left breast stage IA invasive ductal cancer no evidence of recurrence 2. Fibrocystic breast changes Plan: 1. Awaiting final report from recent bilateral mammogram performed on 10-03-21. 2. Repeat physician exam in 6 months, patient will return sooner if any questions or concerns 3. Continue on letrozole continue to follow with medical oncology Cc: Dr. Gama
== END | disposition home or self-care (01) ==
LOC: WWCWWP 10:43
PROVIDERS: ATTEND Surgery
DX: Z53.9 Procedure and treatment not carried out, unspecified reason (principal)

== ENCOUNTER → 2022-10-05 | Outpatient (CLI) | payer MEDICARE, OTHER ==
--- NOTE | 2022-10-05 11:03 | MM ---
Reason for Exam: Follow-up at short interval from prior study. Last screening mammogram was performed 12 month(s) ago. Patient History: Menarche at age 18. First Full-Term at age 21. Postmenopausal. Endometrial cancer, age 32. Breast cancer, age 66. 2016, Lumpectomy on the Left side. 10/13/2016, Malignant Core Biopsy on the left side. 09/16/2016, Malignant Core Biopsy on the left side. 2017, Radiation Therapy. Tissue Density: The breast tissue is heterogeneously dense. This may lower the sensitivity of mammography. Findings: Analyzed By CAD. Diminished size to left breast with distortion and surgical clips is consistent with posttreatment change is redemonstrated. Benign-appearing right axillary lymph nodes are redemonstrated. No suspicious new mass or worrisome group of microcalcification in either breast. Overall Assessment: Benign, BI-RAD 2 Management: Screening Mammogram of both breasts in 1 year. A clinical breast exam by your physician is recommended on an annual basis and results should be correlated with mammographic findings. This exam should not preclude additional follow-up of suspicious palpable abnormalities. Results were given to the patient verbally at the time of exam. Electronically signed and approved by: Aguilar Marc M.D.
== END | disposition home or self-care (01) ==
LOC: RADMAMWWP 09:58
PROVIDERS: ATTEND Surgery
DX: Z85.3 Personal history of malignant neoplasm of breast (principal); Z78.0 Asymptomatic menopausal state
CPT/HCPCS: 77066; G0279; 77062

== ENCOUNTER → 2022-10-05 | Outpatient (CLI) | payer MEDICARE, OTHER ==
--- NOTE | 2022-10-05 14:33 | BD ---
EXAMINATION TYPE: Axial Bone Density DATE OF EXAM: 10/05/2022 COMPARISON: 10/01/2020 CLINICAL HISTORY: 72 years year old Female. ICD-10 CODE: M85.9 Osteopenia, Z79.890 Postmeno w/HRT Height: 61.5 Weight: 142.5 FRAX RISK QUESTIONS: Alcohol (3 or more units per day): NO Family History (Parent hip fracture): NO Glucocorticoids (More than 3mos): NO History of Fracture in Adulthood: NO Secondary Osteoporosis: 1. Type 1 Diabetes: NO 2. Hyperthyroidism: YES 3. Menopause before 45: NO 4. Malnutrition: NO 5. Chronic liver disease: NO Rheumatoid Arthritis: NO Current Tobacco Use: NO RISK FACTORS HISTORY OF: Hip Fracture (Right/Left): NO Spine Fracture: NO History of Wrist Fracture: NO Surgery to Spine/Hip(right/left)/Wrist (right/left): NO Family History of Osteoporosis: NO Active: NO Diet low in dairy products/other sources of calcium: NO Postmenopausal woman: YES Take estrogen and/or progesterone medications: NO Lost more than 2 inches in height since high school: NO Frequent falls: NO Poor Health: NO Hyperparathyroidism: NO Adrenal Insufficiency: NO MEDICATIONS: Prednisone or other steroids: NO Thyroid Medications: LETROZOLE How Long: PAST 3 YEARS Osteoporosis Medications: NO Additional Medications: METHIMAZOLE, CHOLESTEROL. VIT D, MULTI VIT BREAST CA. AGE 67 WITH RADIATION EXAM MEASUREMENTS: Bone mineral densitometry was performed using the [employer] System. Bone mineral density as measured about the Lumbar spine is: ----- L1-L4(G/cm2): 1.148 T Score Values are as follows: ----- L1: 0.0 ----- L2: -0.9 ----- L3: 0.4 ----- L4: -0.7 ----- L1-L4: -0.3 Bone mineral density has: DECREASED -8.8 % since study of: 10/01/2020 Bone mineral density about the R hip (g/cm2): 0.868 Bone mineral density about the L hip (g/cm2): 0.780 T Score values are as follows: -----R Neck: -1.2 -----L Neck: -1.9 -----R Total: -1.3 -----L Total: -1.9 Bone mineral density has: INCREASED 2.4 % since study of: 10/01/2020 FRAX%s: The graph provided illustrates a 11.3% chance for a major osteoporotic fx and a 2.1% chance f or the hips probability for fx in 10 years time. IMPRESSION: Osteopenia (T Score between -2.5 and -1). There is slightly increased risk of fracture and the patient may be considered for treatment. Re-Screen 2-5 years. NOTE: T-SCORE=SD OF THE YOUNG ADULT MEAN.
== END | disposition home or self-care (01) ==
LOC: RADBDWWP 10:00
PROVIDERS: ATTEND Internal Medicine Hematology & Oncology
DX: M85.89 Other specified disorders of bone density and structure, multiple sites (principal); Z79.890 Hormone replacement therapy
CPT/HCPCS: 77080

== ENCOUNTER → 2022-10-09 | Outpatient (CLI) | payer MEDICARE, OTHER ==
--- NOTE | 2022-10-09 09:57 | P.PN ---
Subjective Progress Note Date: 10/09/22 Principal diagnosis: left breast cancer Stage I left breast cancer [id number] Judie is a 71-year-old white female who is status post lumpectomy and radiation therapy for a stage IA left breast cancer in 2016. She did not have any chemotherapy but continues on Letrazole. She is not complaining of any problems related to this. She is not complaining of any lumps masses no discharge or skin changes related to her breasts. She had a bilateral mammogram performed on 10-05-22. This revealed no lesions of concern in either breast. It was benign BIRADS 2 follow- up diagnostic mammogram of both breasts in 1 year was recommended. She completed her radiation therapy in December 2016 under the care of Dr. So Note from radiation oncology [id number] reviewed; they will follow as needed Family History: 2 brother: prostate Hormonal History: menarche: 14 age at first birthL 22, breast fed: yes BCP: 5 years hormones: none Past Surgical History: 1. Removed from neck benign 2. Lump removed from leg benign 3. Left breast lumpectomy and sentinel node biopsy 4. cervical dysplasia scraped Medical history: 1. hyper-thyroid 2. high cholesterol Medications: letrozole methmazole atorvastatin Social history: Nicotine: Negative Alcohol: rare Drugs: Negative Systems: Constitutional: Negative HEENT: Negative Breasts: As per HPI Cardiovascular: High cholesterol lungs: Negative GI: Negative : Negative postmenopausal Musculoskeletal: arthritis Integument: Negative Endocrine: Hyperthyroid Neurologic: Negative Psychiatric: Negative Hematologic: Negative ALLERGIES: Negative Medications: letrozole methmazole atorvastatin Social history: Nicotine: Negative Alcohol: rare Drugs: Negative Systems: Constitutional: Negative HEENT: Negative Breasts: As per HPI Cardiovascular: High cholesterol lungs: Negative GI: Negative : Negative postmenopausal Musculoskeletal: arthritis Integument: Negative Endocrine: Hyperthyroid Neurologic: Negative Psychiatric: Negative Hematologic: Negative ALLERGIES: Negative Objective - Vital Signs Vital signs: Vital Signs Temp 97.8 F 07/16/22 11:36 Pulse 70 07/16/22 11:36 Resp 17 07/16/22 11:36 BP 148/80 07/16/22 11:36 Pulse Ox 98 07/16/22 11:36 FiO2 Intake & Output 07/15/22 07/16/22 07/16/22 18:59 06:59 18:59 Weight 63.503 kg Objective - Constitutional General appearance: Present: cooperative - EENT Eyes: Present: EOMI ENT: Present: hearing grossly normal - Neck Neck: Present: normal ROM - Respiratory Respiratory: bilateral: CTA - Cardiovascular Heart sounds: normal: S1, S2 - Gastrointestinal General gastrointestinal: Present: soft - Integumentary Integumentary: Present: normal turgor - Musculoskeletal Musculoskeletal: Present: gait normal - Psychiatric Psychiatric: Present: A&O x's 3, appropriate affect, intact judgment & insight - Additional findings Additional findings: Breast Exam: BRA: 34B Inspection: Asymmetry of the breast secondary to left breast lumpectomy and radiation therapy, right nipple areolar complex is approximately 2 and half centimeters lower than the left Palpation: Right breast: Positional exam fibrocystic changes no dominant masses or nodules of concern Right axilla: No adenopathy of concern Left breast: Well-healed scar from prior surgery, no dominant masses or nodules of concern Left axilla: No adenopathy of concern Assessment and Plan Assessment: Impression: Patient status post left breast lumpectomy and radiation therapy for stage I in vasive ductal carcinoma no evidence of recurrence Fibrocystic breast changes Plan: Bilateral mammogram in 1 year with physician exam at that time CC: Dr. Tian
[2022-10-09 10:03] VITALS: BP 157/86; PULSE 89; RESP 18; TEMP 97.6
== END | disposition home or self-care (01) ==
LOC: WWCWWP 09:42
PROVIDERS: ATTEND Surgery
DX: Z53.9 Procedure and treatment not carried out, unspecified reason (principal)

== ENCOUNTER → 2023-02-16 | Outpatient (CLI) | payer MEDICARE, OTHER ==
--- NOTE | 2023-02-16 12:52 | US ---
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 Thyroid nodules GLAND SIZE: Right Lobe: 5.7 x 1.3 x 1.7 cm Overall Parenchyma: heterogenous Left Lobe: 5.9 x 1.7 x 1.6 cm Overall Parenchyma: heterogeneous Isthmus Thickness: cm NODULES RIGHT: # of nodules measured on right: 3 1. 1.3 X 1.1 x 1.1 cm, upper lateral, solid or almost completely solid, hypoechoic nodule, which is wider than tall, with smooth margins, without echogenic foci. Prior size: 1.3 x 1.1 x 1.0 cm 2. .8 X .7 x .7 cm, mid , solid or almost completely solid, hypoechoic nodule, which is wider than tall, with smooth margins, without echogenic foci. Prior size: .8 x .9 x .8 cm 3. .6 X .6 x .7 cm, mid , calcified, hyperechoic nodule, which is wider than tall, with smooth jazmyn ins, without echogenic foci. Prior size: .6 cm LEFT: # of nodules measured on left: 1 1. 2.0 X 1.5 x 1.4 cm, lower , solid or almost completely solid, hypoechoic nodule, which is wider than tall, with smooth margins, without echogenic foci. Prior size: 1.9 x 1.4 x 1.4 cm ISTHMUS: # of nodules measured in the isthmus: .3 Bilateral neck scanned, no evidence of lymphadenopathy. Heterogeneous normal-sized thyroid with multiple bilateral nodules redemonstrated. IMPRESSION: As above. No significant change from most recent prior.
[2023-02-16 22:50] LABS: T4, Free (Free Thyroxine) 1.35 ng/dL (0.800-1.800)
== END | disposition home or self-care (01) ==
LOC: RADUSWWP 12:09
PROVIDERS: ATTEND Internal Medicine Endocrinology, Diabetes & Metabolism
DX: E04.2 Nontoxic multinodular goiter (principal); E05.90 Thyrotoxicosis, unspecified without thyrotoxic crisis or storm
CPT/HCPCS: 76536; 84439; 84443; 84480

== ENCOUNTER → 2023-10-20 | Outpatient (CLI) | payer MEDICARE, OTHER ==
--- NOTE | 2023-10-20 10:02 | MM ---
Reason for Exam: Additional evaluation requested from prior study. Last screening mammogram was performed 12 month(s) ago. Patient History: Menarche at age 18. First Full-Term at age 21. Postmenopausal. Endometrial cancer, age 32. Breast cancer, age 66. 2016, Lumpectomy on the Left side. 10/13/2016, Malignant Core Biopsy on the left side. 09/16/2016, Malignant Core Biopsy on the left side. 2017, Radiation Therapy. Tissue Density: There are scattered fibroglandular densities. Findings: Analyzed By CAD. No new suspicious masses, calcifications or distortions. Overall Assessment: Benign, BI-RAD 2 Management: Screening Mammogram of both breasts in 1 year. Results were given to the patient verbally at the time of exam. Patient should continue monthly self-breast exams. A clinical breast exam by your physician is recommended on an annual basis. This exam should not preclude additional follow-up of suspicious palpable abnormalities. Note on Bibiana scores and lifetime risk: 1. A Bibiana score greater than 3% is considered moderate risk. If this is the case, consider specialist referral to assess eligibility for a risk reducing agent. 2. If overall lifetime risk for the development of breast cancer is 20% or higher, the patient may qualify for future screening with alternating mammogram and breast MRI. Electronically signed and approved by: Joseph Pereyra DO
== END | disposition home or self-care (01) ==
LOC: RADMAMWWP 09:40
PROVIDERS: ATTEND Surgery
DX: R92.323 Mammographic fibroglandular density, bilateral breasts (principal); Z85.3 Personal history of malignant neoplasm of breast; Z78.0 Asymptomatic menopausal state
CPT/HCPCS: 77066; G0279; 77062

== ENCOUNTER → 2023-12-13 | Outpatient (CLI) | payer MEDICARE, OTHER ==
[2023-12-13 15:51] LABS: T4, Free (Free Thyroxine) 1.24 ng/dL (0.80-1.80)
== END | disposition home or self-care (01) ==
LOC: LABWHC1 11:48
PROVIDERS: ATTEND Internal Medicine Endocrinology, Diabetes & Metabolism
DX: E05.90 Thyrotoxicosis, unspecified without thyrotoxic crisis or storm (principal)
CPT/HCPCS: 36415; 84439; 84443; 84480

== ENCOUNTER → 2024-04-06 | Outpatient (CLI) | payer MEDICARE, OTHER ==
--- NOTE | 2024-04-06 11:09 | P.PN ---
Subjective Progress Note Date: 04/06/24 Principal diagnosis: left breast cancer stage I 201510/09/22 Principal diagnosis: left breast cancer Stage I left breast cancer [id number] Judie is a 73-year-old white female who is status post lumpectomy and radiation therapy for a stage IA left breast cancer in 2016. She did not have any chemotherapy but continues on Letrazole. She is not complaining of any problems related to this. She is not complaining of any lumps masses no discharge or skin changes related to her breasts. She had a bilateral mammogram performed on 10-20-23. This revealed no lesions of concern in either breast. It was benign BIRADS 2 follow- up diagnostic mammogram of both breasts in 1 year was recommended. She completed her radiation therapy in December 2016 under the care of Dr. So Radiation oncology will follow as needed. Note medical oncology Dr. Ayoub 10-19-22 reviewed, she stopped letrazole She does have some intermittent discomfort in her left groin area. She thinks she may have pulled a muscle at this site. Has noted an intermittent bulge at the site but it goes away. Family History: 2 brother: prostate Hormonal History: menarche: 14 age at first birthL 22, breast fed: yes BCP: 5 years hormones: none Past Surgical History: 1. Removed from neck benign 2. Lump removed from leg benign 3. Left breast lumpectomy and sentinel node biopsy 4. cervical dysplasia scraped Medical history: 1. hyper-thyroid 2. high cholesterol Medications: letrozole/ stopped methmazole atorvastatin Social history: Nicotine: Negative Alcohol: rare Drugs: Negative Systems: Constitutional: Negative HEENT: Negative Breasts: As per HPI Cardiovascular: High cholesterol lungs: Negative GI: Negative : Negative postmenopausal Musculoskeletal: arthritis Integument: Negative Endocrine: Hyperthyroid Neurologic: Negative Psychiatric: Negative Hematologic: Negative ALLERGIES: Negative Objective - Constitutional General appearance: Present: cooperative - EENT Eyes: Present: EOMI ENT: Present: hearing grossly normal - Neck Neck: Present: normal ROM - Respiratory Respiratory: bilateral: CTA - Cardiovascular Rhythm: regular Heart sounds: normal: S1, S2 - Integumentary Integumentary: Present: normal turgor - Musculoskeletal Musculoskeletal: Present: gait normal - Psychiatric Psychiatric: Present: A&O x's 3, appropriate affect, intact judgment & insight - Additional findings Additional findings: Breast Exam: BRA: 34B Inspection: Asymmetry of the breast secondary to left breast lumpectomy and radiation therapy, right nipple areolar complex is approximately 2 and half centimeters lower than the left Palpation: Right breast: Positional exam fibrocystic changes no dominant masses or nodules of concern Right axilla: No adenopathy of concern Left breast: Well-healed scar from prior surgery, no dominant masses or nodules of concern Left axilla: No adenopathy of concern Having left lower quadrant pain with a bulge in that area therefore an examination was done for hernia No right or left inguinal hernia was identified in either the recumbent or standing position. Assessment and Plan Assessment: Impression: Patient status post left breast lumpectomy and radiation therapy for stage I invasive ductal carcinoma no evidence of recurrence Fibrocystic breast changes bilateral mammogram on 10-20-23 BIRAD 2 Left groin pain Plan: Bilateral mammogram in September 2024 with physician exam at that time continue to follow with Dr. Ayoub Left groin pain/consider CT scan to further evaluate, she will follow-up with this with Dr. Sara Jonas he, at this time there is no definite hernia noted on today's exam CC: Dr. Tian
[2024-04-06 11:14] VITALS: BP 154/78; PULSE 76; RESP 17; TEMP 98
== END ==
LOC: WWCWWP 10:03
PROVIDERS: ATTEND Surgery
DX: Z90.12 Acquired absence of left breast and nipple (principal); N60.12 Diffuse cystic mastopathy of left breast; R10.30 Lower abdominal pain, unspecified

== ENCOUNTER 2024-07-13 20:33 | Emergency (ER) | payer MEDICARE, OTHER ==
[2024-07-13] MEDS ORDERED: ACETAMINOPHEN TAB 325 MG TAB ONE (21:12)
--- NOTE | 2024-08-02 08:40 | CT ---
Patient: Judie Rodríguez Ordering Physician: Unknown, Unknown ID: [id number] Phone, Pager: Phon e: N/A Pager: N/A : 1950 Age/Gender: 74Y, F Primary Location: N/A Procedure: CT brain cspine w o con Study Date: 07/13/2024 9:50:00 PM EXAMINATION TYPE: CT brain cspine wo con DATE OF EXAM: 07/13/2024 COMPARISON: HISTORY: Pain CT DLP: mGycm Unenhanced CT of the brain was performed. The ventricles, basal cisterns and sulci overlying the cerebral convexities demonstrate mild enlargem ent. There is no evidence for intracranial hemorrhage or sulcal effacement. There is decreased attenuatio n about the periventricular white matter and deep white matter of both cerebral hemispheres, compatib le with chronic small vessel ischemia. No mass effects are seen. If symptoms persist consider MRI. Osseous calvarium is intact. IMPRESSION: 1. Age related atrophic and chronic small vessel ischemic change without acute intracranial process seen at this time. CT Cervical Spine: Unenhanced CT of the cervical spine was performed with bone and soft tissue window settings submitted . Coronal and sagittal reconstruction is obtained. There is normal alignment and prevertebral soft tissues. No evidence for acute cervical fracture . Scattered degenerative disc disease and spondylosis. Biapical scarring. IMPRESSION: 1. No evidence for acute fracture or subluxation of the cervical spine.
== END 2024-07-13 22:43 | disposition home or self-care (01) ==
LOC: EC 20:33
CPT/HCPCS: 70450; 72125; 99283

== ENCOUNTER → 2024-10-23 | Outpatient (CLI) | payer MEDICARE, OTHER ==
--- NOTE | 2024-10-23 11:03 | MM ---
Reason for Exam: Hx of breast cancer, conservation therapy. Last mammogram was performed 1 year(s) and 1 month(s) ago. Patient History: Menarche at age 18. First Full-Term at age 21. Postmenopausal. Endometrial cancer, age 32. Breast cancer, left, age 66. 2016, Lumpectomy on the Left side. 10/13/2016, Malignant Core Biopsy on the left side. 09/16/2016, Malignant Core Biopsy on the left side. 2017, Radiation Therapy. Tissue Density: The breasts are heterogeneously dense, which may obscure small masses. Findings: Analyzed By CAD. Redemonstrated postsurgical and posttreatment change left breast with Biozorb device in place. Areas of asymmetric density are unchanged. No significant change from prior exams. Overall Assessment: Benign, BI-RAD 2 Management: Screening Mammogram of both breasts in 1 year. Results were given to the patient verbally at the time of exam. Patient should continue monthly self-breast exams. A clinical breast exam by your physician is recommended on an annual basis. This exam should not preclude additional follow-up of suspicious palpable abnormalities. [facility], , 10/23/2024 11:00 AM. Electronically signed and approved by: Shabnam Cho M.D. Radiologist
== END | disposition home or self-care (01) ==
LOC: RADMAMWWP 10:37
PROVIDERS: ATTEND Surgery
DX: Z85.3 Personal history of malignant neoplasm of breast (principal); Z78.0 Asymptomatic menopausal state; R92.333 Mammographic heterogeneous density, bilateral breasts
CPT/HCPCS: 77066; G0279; 77062